=== PATIENT | male | born 1980 | race Hispanic/Latino ===

== ENCOUNTER → 2018-07-30 | Outpatient (CLI) | payer OTHER | END | disposition home or self-care (01) | LOC: OIH 12:42 | PROVIDERS: ATTEND Internal Medicine | DX: Z13.6 Encounter for screening for cardiovascular disorders (principal) | CPT/HCPCS: 75571 ==

== ENCOUNTER → 2019-06-19 | Outpatient (CLI) | payer OTHER | END | disposition home or self-care (01) | LOC: OIH 09:53 | PROVIDERS: ATTEND Internal Medicine | DX: S60.512A Abrasion of left hand, initial encounter (principal); S80.211A Abrasion, right knee, initial encounter; M79.89 Other specified soft tissue disorders; M22.3X1 Other derangements of patella, right knee; M79.642 Pain in left hand; X58.XXXA Exposure to other specified factors, initial encounter; Y93.89 Activity, other specified; Y92.89 Other specified places as the place of occurrence of the external cause; Y99.8 Other external cause status | CPT/HCPCS: 73120; 73560 ==